=== PATIENT | male | born 1960 | race Caucasian/White ===

== ENCOUNTER 2017-09-08 06:46 | Inpatient (IN) ==
--- NOTE | 2017-09-08 06:59 | Emergency Department Note ---
Disposition Clinical Impression: NSTEMI (non-ST elevation myocardial infarction) Chest pain Qualifiers: Chest pain type: chest pain due to myocardial ischemia Ischemic chest pain type : unspecified angina pectoris type Qualified Code(s): I25.9 - Chronic ischemic heart disease, unspecified Disposition: Admitted As Inpatient Condition: Fair Time of Disposition: 09:10 Chest Pain HPI - General Chief Complaint: ED Chest Pain Stated Complaint: CP, both arms tingly Time Seen by Provider: 09/08/17 06:54 Source: patient, family Mode of arrival: private vehicle Limitations: no limitations Vital Signs Reviewed: Yes Nursing Notes Reviewed: Yes - History of Present Illness HPI Narrative: There is a pleasant 56-year-old male. He presents the emergency room with chest pain starting at 3 am this morning when he woke up for work as well as bilateral arm tingling. Patient states that the pain has been constant since 3 AM he states that it is in his anterior bilateral chest. he denies localization. Initially he was unsure if anything made the pain better or worse however following interview he notes that the pain gets better with palpation and better with deep breathing. He has a positive family history for brother who passed with a heart attack last May at age 55. He also notes that he has hypercholesterolemia hypertension insulin-dependent diabetic type II. He states that he had a recent stress test in September 2016. No other concerns at this time. he does not have any previous cardiac history. He incidentally notes that he fell forward yesterday and landed on his knees. Mechanical fall. He denies hits to the chest or head during this fall. He has regular contact with his primary care physician and was able to text his PCP prior to arrival in the ED today. His PCP recommended evaluation in the ED due to family history and chest pain. Pt complaint: chest pain Onset (ago): hour(s) (3) Duration: constant Onset: other (started just after waking up at 3 am) Pain Location: substernal Quality: tightness Improves with: other (palpation / deep breathing) Associated symptoms: Denies: nausea, vomiting, diaphoresis, dyspnea, sense of impending doom, palpitations, fever, cough, leg swelling Treatments prior to arrival chest pain: aspirin (162 mg chewable) - Related Data On Oral Contraceptives: No Home Medications Medication Instructions Recorded Confirmed Insulin Glargine,Hum.rec.anlog 45 unit SQ QPM 09/08/17 09/08/17 [Basaglar Kwikpen U-100] Losartan/Hydrochlorothiazide 1 tab PO DAILY 09/08/17 09/08/17 [Hyzaar 100-12.5 Tablet] Lovastatin 40 mg PO QPM 09/08/17 09/08/17 Tamsulosin HCl [Flomax] 0.4 mg PO DAILY 09/08/17 09/08/17 glipiZIDE [Glipizide] 10 mg PO BID 09/08/17 09/08/17 Allergies Allergy/AdvReac Type Severity Reaction Status Date / Time No Known Allergies Allergy Verified 09/08/17 06:49 All systems ED: reviewed and negative except as stated. Review of Systems: As Per HPI Physical Exam Pt resting comfortably in the exam bed without diaphoresis or acute distress. Lungs CtA, Cardiac RRR. Exam neg for leg / calf swelling. NO pitting edema. Distal extremities are warm and dry. abdomen soft. no skin findings. - General Limitations: no limitations General appearance: alert, in no apparent distress - Head Head exam: atraumatic, normocephalic, normal inspection - Eye Eye exam: Present: normal appearance, PERRL, EOMI - Expanded Eye Exam Pupils: Left: reactive - ENT ENT exam: normal exam, normal oropharynx, mucous membranes moist - Expanded ENT Exam Mouth exam: Present: normal external inspection Teeth exam: Present: normal inspection Throat exam: Present: normal inspection - Neck Neck exam: Present: normal inspection, full ROM - Chest Chest inspection: Present: normal inspection, symmetric chest wall rise - Respiratory Respiratory exam: Present: normal lung sounds bilaterally - Cardiovascular Cardiovascular exam: Present: regular rate, normal rhythm, normal heart sounds - Abdominal Exam Abdominal exam: Present: soft, Non-Tender. Absent: tenderness, distention, guarding, rebound, rigidity - Extremities Exam Extremities exam: Present: normal inspection, full ROM. Absent: tenderness, pedal edema - Expanded Upper Extremity Exam Shoulder exam: Present: normal inspection Arm exam: Present: normal inspection Elbow exam: Present: normal inspection Forearm/Wrist exam: Present: normal inspection Hand exam: Present: normal inspection Vascular exam: Normal: capillary refill, radial pulse - Expanded Lower Extremity Exam Hip/Pelvis exam: Present: normal inspection Upper leg exam: Present: normal inspection Knee exam: Present: normal inspection Lower leg exam: Present: normal inspection Ankle exam: Present: normal inspection Foot/toe exam: Present: normal inspection Neurovascular/Tendon exam: Absent: motor deficit, sensory deficit, tendon deficit - Back Exam Back exam: Present: normal inspection. Absent: tenderness - Neurological Exam Neurological exam: Present: alert, oriented X3 - Expanded Neurological Exam Patient oriented to: Present: person, place, time Coma Scale Eye Opening: Spontaneous Coma Scale Motor Response: Obeys Commands Coma Scale Verbal Response: Oriented Coma Scale Total: 15 - Psychiatric Psychiatric exam: Present: normal affect, normal mood - Skin Skin exam: Present: warm, dry, intact, normal color Course Course Narrative: 0710 - pt notes slight improvement of symptoms following resting on bed. He states that CP was a 5 or a 6 when he arrived at the ED. He notes that it is currently a 2 or 3 with a positional component. EKG WNL. 0745 - pt notes chest pain is 0. 0840 - seems results of elevated troponin 0.4. Recheck on patient notes that his chest pain returned momentarily after exertion/walking to the bathroom. He currently rates his pain at a 1. Sublingual nitroglycerin was ordered. The patient was given 1 dose of nitroglycerin which resolved his chest pain to 0. Following attending evaluation CTA chest and abdomen were ordered to evaluate for dissection. Heparin drip was started and 180 mg by mouth Brilinta was added to patient's care. Repeat EKG diagnostic w slight elevation and depression. Cardiology consulted. 0858 - 1 dose of SL Nitro took pain to 0. Pt is currently pain free. Cardiology and hopsitalist consulted. Pt will be admitted to medicine w cardiology consult. Pt did well in the ED without any complications. Vital Signs Temperature 97.6 F 09/08/17 06:49 Pulse Rate 78 09/08/17 06:49 Respiratory Rate 18 09/08/17 06:49 Blood Pressure 167/82 09/08/17 06:49 O2 Sat by Pulse Oximetry 99 09/08/17 06:49 Temperature 98.0 F 09/09/17 03:18 Pulse Rate 76 09/09/17 03:18 Respiratory Rate 16 09/09/17 03:18 Blood Pressure 100/62 09/09/17 03:18 O2 Sat by Pulse Oximetry 96 09/09/17 03:18 Oxygen Delivery Oxygen Delivery Room Air Chest Pain - Lab Data Lab results reviewed: Yes I reviewed the patient's lab results. Result diagrams: 09/09/17 05:16 09/09/17 05:16 Lab Results 09/08/17 09/08/17 09/08/17 Range/Units 07:48 07:48 07:48 WBC 7.6 (4.3-11.1) K/mcL RBC 4.45 (4.19-5.50) M/mcL Hgb 13.4 (12.9-16.9) g/dL Hct 39.9 (37.5-50.1) % MCV 89.7 (83.0-100.0) fL MCH 30.1 (28.0-33.3) pg MCHC 33.6 (31.6-35.5) g/dL RDW 12.7 (11.5-14.5) % Plt Count 155 (140-400) K/mcL MPV 9.2 L (9.4-12.4) fL Immature Gran % 0.3 (0-4) % Seg Neutrophils % 74.9 % Lymphocytes % 16.0 % Monocytes % 6.9 % Eosinophils % 1.2 % Basophils % 0.7 % Neutrophils # 5.7 (1.6-8.9) K/mcL Lymphocytes # 1.2 (0.6-4.6) K/mcL Monocytes # 0.5 (0.0-1.3) K/mcL Eosinophils # 0.1 (0.0-0.6) K/mcL Basophils # 0.1 (0.0-0.2) K/mcL PT 11.7 (9.4-12.1) Seconds INR 1.1 APTT 35.1 (26.0-36.0) Seconds Sodium (136-145) mEq/L Potassium (3.5-5.1) mEq/L Chloride (98-107) mEq/L Carbon Dioxide (23-29) mEq/L BUN (6-20) mg/dL Creatinine (0.70-1.30) mg/dL Est GFR ( Amer) (> 60) Est GFR (Non-Af Amer) (> 60) BUN/Creatinine Ratio (6-26) Glucose (70-105) mg/dL Calculated Osmolality (280-300) Calcium (8.6-10.3) mg/dL Total Bilirubin 0.5 (0.3-1.0) mg/dL Direct Bilirubin 0.1 (0.0-0.2) mg/dL Indirect Bilirubin 0.4 (0.0-1.2) mg/dL AST 27 (13-39) Units/L ALT 21 (7-52) Units/L Alkaline Phosphatase 79 (34-104) Units/L Troponin I (< 0.04) ng/mL Serum Total Protein 7.0 (6.4-8.9) g/dL Albumin 4.1 (3.5-5.7) g/dL Globulin 2.9 (2.4-3.5) g/dL Albumin/Globulin Ratio 1.4 (1.1-2.2) Lipase 39 (11-82) Units/L /08/21 Range/Units 07:48 WBC (4.3-11.1) K/mcL RBC (4.19-5.50) M/mcL Hgb (12.9-16.9) g/dL Hct (37.5-50.1) % MCV (83.0-100.0) fL MCH (28.0-33.3) pg MCHC (31.6-35.5) g/dL RDW (11.5-14.5) % Plt Count (140-400) K/mcL MPV (9.4-12.4) fL Immature Gran % (0-4) % Seg Neutrophils % % Lymphocytes % % Monocytes % % Eosinophils % % Basophils % % Neutrophils # (1.6-8.9) K/mcL Lymphocytes # (0.6-4.6) K/mcL Monocytes # (0.0-1.3) K/mcL Eosinophils # (0.0-0.6) K/mcL Basophils # (0.0-0.2) K/mcL PT (9.4-12.1) Seconds INR APTT (26.0-36.0) Seconds Sodium 135 L (136-145) mEq/L Potassium 4.6 (3.5-5.1) mEq/L Chloride 102 (98-107) mEq/L Carbon Dioxide 24 (23-29) mEq/L BUN 24 H (6-20) mg/dL Creatinine 0.87 (0.70-1.30) mg/dL Est GFR ( Amer) > 60 (> 60) Est GFR (Non-Af Amer) > 60 (> 60) BUN/Creatinine Ratio 28 H (6-26) Glucose 172 H (70-105) mg/dL Calculated Osmolality 288 (280-300) Calcium 9.9 (8.6-10.3) mg/dL Total Bilirubin (0.3-1.0) mg/dL Direct Bilirubin (0.0-0.2) mg/dL Indirect Bilirubin (0.0-1.2) mg/dL AST (13-39) Units/L ALT (7-52) Units/L Alkaline Phosphatase (34-104) Units/L Troponin I 0.40 H* (< 0.04) ng/mL Serum Total Protein (6.4-8.9) g/dL Albumin (3.5-5.7) g/dL Globulin (2.4-3.5) g/dL Albumin/Globulin Ratio (1.1-2.2) Lipase (11-82) Units/L - Radiology Data Radiology results reviewed: Yes I reviewed the patient's radiology results. Heart Score - Score Age: 45-65 Risk Factors: 1-2 risk factors (3) Troponin: 1-3x normal limit Critical Care Time Attestation: billed by attending physician Dr. Lorenzo.
[2017-09-08] MEDS ORDERED: Aspirin 81 MG TAB.CHEW PO ONE (07:09)
[2017-09-08] MEDS ORDERED: Ibuprofen 600 MG TABLET PO ONE (07:09)
[2017-09-08 07:58] LABS: Basophils # 0.1 K/mcL (0.0-0.2); Basophils % 0.7 %; Eosinophils # 0.1 K/mcL (0.0-0.6); Eosinophils % 1.2 %; Hematocrit 39.9 % (37.5-50.1); Hemoglobin 13.4 g/dL (12.9-16.9); Immature Granulocytes % 0.3 % (0-4); Lymphocytes # 1.2 K/mcL (0.6-4.6); Mean Corpuscular HGB Conc 33.6 g/dL (31.6-35.5); Mean Corpuscular Hemoglobin 30.1 pg (28.0-33.3); Mean Corpuscular Volume 89.7 fL (83.0-100.0); Mean Platelet Volume 9.2 fL (9.4-12.4); Monocytes # 0.5 K/mcL (0.0-1.3); Monocytes % 6.9 %; Neutrophils # 5.7 K/mcL (1.6-8.9); Platelet Count 155 K/mcL (140-400); Red Blood Count 4.45 M/mcL (4.19-5.50); Red Cell Distribution Width 12.7 % (11.5-14.5); Segmented Neutrophils % 74.9 %
[2017-09-08 08:02] LABS: INR 1.1; Prothrombin Time 11.7 Seconds (9.4-12.1)
[2017-09-08 08:04] LABS: Activated Partial Thrombo Time 35.1 Seconds (26.0-36.0)
[2017-09-08 08:23] LABS: Albumin 4.1 g/dL (3.5-5.7); Albumin/Globulin Ratio 1.4 (1.1-2.2); Bilirubin,Direct 0.1 mg/dL (0.0-0.2); Bilirubin,Indirect 0.4 mg/dL (0.0-1.2); Bilirubin,Total 0.5 mg/dL (0.3-1.0); Globulin 2.9 g/dL (2.4-3.5)
[2017-09-08 08:25] LABS: BUN/Creatinine Ratio 28 (6-26); Blood Urea Nitrogen 24 mg/dL (6-20); Calcium 9.9 mg/dL (8.6-10.3); Carbon Dioxide 24 mEq/L (23-29); Chloride 102 mEq/L (98-107); Glucose 172 mg/dL (70-105); Osmolality,Calculated 288 (280-300); Potassium 4.6 mEq/L (3.5-5.1); Sodium 135 mEq/L (136-145); eGFR For African Americans > 60 (> 60); eGFR For Non-African Americans > 60 (> 60)
[2017-09-08] MEDS ORDERED: Nitroglycerin 0.4 MG TAB.SUBL SL ONE (08:34)
[2017-09-08] MEDS ORDERED: *HR* Heparin 5,000 UNIT/ML VIAL IVP PRN ×2 (08:37)
[2017-09-08] MEDS ORDERED: *HR* Heparin 5,000 UNIT/ML VIAL IVP ONE (08:37)
[2017-09-08] MEDS ORDERED: Isovue-370 500 ML INFUS..BTL IV ONE (08:40)
[2017-09-08] MEDS ORDERED: *HR* Ticagrelor 90 MG TABLET PO ONE (08:43)
[2017-09-08] MEDS ORDERED: Heparin 25,000 UNIT/500 ML D5W 25,000 UNIT/500 ML BAG IVC SCH (08:45)
--- NOTE | 2017-09-08 09:22 | Internal Med History&Physical ---
Date of Encounter: 09/08/17 Time of Encounter: 09:20 Internal Medicine - H&P: HPI Chief complaint: chest pain Admitted From: Emergency Dept Plans for Post Hospital Care: Home History of present illness: Mr. Canas is a 56 year old male Patient with history of diabetes, obesity, hypertension, high cholesterol, family history of CAD in brother had an MD at age of 55 and patient present with chest pain. 3 AM this morning describes as pressure and tightness ongoing for about 3 hours emergency room patient had troponin of 0.4 consistent with non-STEMI patient had been seen by cardiology and plan for cardiac cath and patient is now chest pain-free and stable .Of note patient had a nuclear stress test done September last year EF 73% negative for ischemia. Past Med Surg Social Fam HX - Past Medical History Medical history: diabetes, hyperlipidemia, hypertension Psychiatric history: no psych history - Social History Smoking Status: Never smoker Smokeless Tobacco Status: No Alcohol use: none Drug use: none Internal Medicine - H&P: Meds 3 Allergy/AdvReac Type Severity Reaction Status Date / Time No Known Allergies Allergy Verified 09/08/17 06:49 All Systems PM: A 10-system review of systems was performed and is negative for pertinent findings except as documented above in the HPI. - Constitutional Constitutional: as per HPI - EENT Eyes: no change in vision, no discharge, no pain, no photophobia Ears: no ear discharge, no ear pain, no tinnitus Nose, mouth and throat: no dysphagia, no nasal discharge, no neck pain, no sore throat - Cardiovascular Cardiovascular ROS IM: chest pain, dyspnea on exertion - Respiratory Respiratory: dyspnea - Gastrointestinal Gastrointestinal: no abdominal pain, no diarrhea, no hematemesis, no hematochezia, no melena, no nausea, no vomiting - Musculoskeletal Musculoskeletal ROS IM: no numbness, no tingling - Constitutional Vitals: Temp Pulse Resp BP Pulse Ox 97.6 F 74 18 137/78 99 09/08/17 06:49 09/08/17 08:50 09/08/17 08:50 09/08/17 08:50 09/08/17 08:50 - Head Head exam: Present: atraumatic, normocephalic - Eye Eye exam: Present: PERRL, conjuntiva pink, sclera anicteric Pupils: Present: PERRL - Neck Neck exam general surgery: Present: supple, trachea midline. Absent: lymphadenopathy - Respiratory Respiratory exam: Present: CTAB. Absent: accessory muscle use, rales, rhonchi, wheezes - Cardiovascular Cardiovascular exam: Present: RRR, +S1, +S2. Absent: diastolic murmur, gallop, rubs, systolic murmur - GI/Abdominal GI/Abdominal exam: Present: normal bowel sounds, soft, no peritoneal signs. Absent: distended, tenderness - Extremities Exam Extremities exam: Present: warm, radial pulses palpable and symmetrical. Absent : calf tenderness, cyanotic, pedal edema - Neurological Exam Neurological exam: Present: CN II-XII intact, oriented X3, no focal deficits. Absent: pronater drift, facial droop, speech deficit - Skin Skin exam: Present: dry, intact Internal Med - H&P Results - Labs CBC & Chem 7: 09/08/17 07:48 09/08/17 07:48 Labs: Short CBC 09/08/17 Range/Units 07:48 WBC 7.6 (4.3-11.1) K/mcL Hgb 13.4 (12.9-16.9) g/dL Hct 39.9 (37.5-50.1) % Plt Count 155 (140-400) K/mcL Neutrophils # 5.7 (1.6-8.9) K/mcL BMP 09/08/17 07:48 Sodium 135 L Potassium 4.6 Chloride 102 Carbon Dioxide 24 BUN 24 H Creatinine 0.87 Glucose 172 H Calcium 9.9 Cardiac Enzymes 09/08/17 Range/Units 07:48 Troponin I 0.40 H* (< 0.04) ng/mL Liver Function 09/08/17 Range/Units 07:48 Total Bilirubin 0.5 (0.3-1.0) mg/dL Direct Bilirubin 0.1 (0.0-0.2) mg/dL AST 27 (13-39) Units/L ALT 21 (7-52) Units/L Alkaline Phosphatase 79 (34-104) Units/L Albumin 4.1 (3.5-5.7) g/dL - Impressions ITS Impressions Chest X-Ray 09/08/17 07:09 IMPRESSION: 1. No acute process. 2. Approximately 18 mm nodular density projecting over the right upper lung. While this could represent asymmetric degenerative changes at the costovertebral junction, possibility of pulmonary nodule should be excluded with follow-up chest CT. This can be done nonemergently as an outpatient. D/ / 09/08/2017 07:57:47 Petr Jefferson MD / curtis Interpreting Provider: Petr Jefferson MD - Assessment and plan (1) Diabetes 1.5, managed as type 2 Current Visit: Yes Status: Chronic Assessment and plan: chronic and insulin-dependent we dunia and place on sliding scale (2) HTN (hypertension) Current Visit: Yes Status: Chronic Assessment and plan: Chronic and appears relatively well controlled Qualifiers: Hypertension type: essential hypertension Qualified Code(s): I10 - Essential (primary) hypertension (3) Hyperlipidemia Current Visit: Yes Status: Chronic Assessment and plan: Chronic recheck in a.m. Qualifiers: Hyperlipidemia type: pure hypercholesterolemia Qualified Code(s): E78.00 - Pure hypercholesterolemia, unspecified; E78.0 - Pure hypercholesterolemia (4) Obesity Current Visit: Yes Status: Chronic Qualifiers: Obesity type: due to excess calories Obesity classification: unspecified obesity classification Serious obesity comorbidity presence: unspecified whether serious comorbidity present Qualified Code(s): E66.09 - Other obesity due to excess calories (5) NSTEMI (non-ST elevation myocardial infarction) Current Visit: Yes Status: Acute Assessment and plan: Patient with multiple cardiac risk factor presented with chest pain troponin 0.4 patoemt already seen by cardiology plan for cath this afternoon - Time Spent With Patient Total time spent is greater than 50% in coordination of care (as documented) at patient's floor/unit and/or counseling patient:
[2017-09-08] MEDS ORDERED: Naloxone 0.4 MG/ML INJ IVP PRN (09:27)
[2017-09-08] MEDS ORDERED: traMADol 50 MG TABLET PO PRN (09:27)
[2017-09-08] MEDS ORDERED: Ondansetron 4 MG/2 ML VIAL IVP PRN (09:27)
[2017-09-08] MEDS ORDERED: Acetaminophen 325 MG TABLET PO PRN (09:27)
--- NOTE | 2017-09-08 09:27 | Emergency Department Note ---
Disposition Clinical Impression: NSTEMI (non-ST elevation myocardial infarction), Chest pain Disposition: Admitted As Inpatient Condition: Fair Referrals: Hector Landa DO [Primary Care Provider] - Forms: ED Satisfaction Letter Time of Disposition: 09:27 General Adult HPI - General Chief complaint: ED Chest Pain Stated complaint: CP, both arms tingly Time Seen by Provider: 09/08/17 06:54 Source: patient, family Mode of arrival: private vehicle Limitations: no limitations - History of Present Illness Pain Scale: 0 - Related Data Allergies Allergy/AdvReac Type Severity Reaction Status Date / Time No Known Allergies Allergy Verified 09/08/17 06:49 Past Medical History - Past Medical History Medical history: Reports: dementia, hyperlipidemia, hypertension Psychiatric history: Reports: no psych history - Social History Smoking Status: Never smoker Smokeless Tobacco Status: No Alcohol use: Reports: none Drug use: Reports: none Physical Exam - General Limitations: no limitations General appearance: alert, in no apparent distress Course Vital Signs Temperature 97.6 F 09/08/17 06:49 Pulse Rate 78 09/08/17 06:49 Respiratory Rate 18 09/08/17 06:49 Blood Pressure 167/82 09/08/17 06:49 O2 Sat by Pulse Oximetry 99 09/08/17 06:49 Temperature 97.6 F 09/08/17 06:49 Pulse Rate 74 09/08/17 08:50 Respiratory Rate 18 09/08/17 08:50 Blood Pressure 137/78 09/08/17 08:50 O2 Sat by Pulse Oximetry 99 09/08/17 08:50 Oxygen Delivery Oxygen Delivery Room Air Medical Decision Making - Lab Data Result diagrams: 09/08/17 07:48 09/08/17 07:48 Lab Results 09/08/17 09/08/17 09/08/17 Range/Units 07:48 07:48 07:48 WBC 7.6 (4.3-11.1) K/mcL RBC 4.45 (4.19-5.50) M/mcL Hgb 13.4 (12.9-16.9) g/dL Hct 39.9 (37.5-50.1) % MCV 89.7 (83.0-100.0) fL MCH 30.1 (28.0-33.3) pg MCHC 33.6 (31.6-35.5) g/dL RDW 12.7 (11.5-14.5) % Plt Count 155 (140-400) K/mcL MPV 9.2 L (9.4-12.4) fL Immature Gran % 0.3 (0-4) % Seg Neutrophils % 74.9 % Lymphocytes % 16.0 % Monocytes % 6.9 % Eosinophils % 1.2 % Basophils % 0.7 % Neutrophils # 5.7 (1.6-8.9) K/mcL Lymphocytes # 1.2 (0.6-4.6) K/mcL Monocytes # 0.5 (0.0-1.3) K/mcL Eosinophils # 0.1 (0.0-0.6) K/mcL Basophils # 0.1 (0.0-0.2) K/mcL PT 11.7 (9.4-12.1) Seconds INR 1.1 APTT 35.1 (26.0-36.0) Seconds Sodium (136-145) mEq/L Potassium (3.5-5.1) mEq/L Chloride (98-107) mEq/L Carbon Dioxide (23-29) mEq/L BUN (6-20) mg/dL Creatinine (0.70-1.30) mg/dL Est GFR ( Amer) (> 60) Est GFR (Non-Af Amer) (> 60) BUN/Creatinine Ratio (6-26) Glucose (70-105) mg/dL Calculated Osmolality (280-300) Calcium (8.6-10.3) mg/dL Total Bilirubin 0.5 (0.3-1.0) mg/dL Direct Bilirubin 0.1 (0.0-0.2) mg/dL Indirect Bilirubin 0.4 (0.0-1.2) mg/dL AST 27 (13-39) Units/L ALT 21 (7-52) Units/L Alkaline Phosphatase 79 (34-104) Units/L Troponin I (< 0.04) ng/mL Serum Total Protein 7.0 (6.4-8.9) g/dL Albumin 4.1 (3.5-5.7) g/dL Globulin 2.9 (2.4-3.5) g/dL Albumin/Globulin Ratio 1.4 (1.1-2.2) Lipase 39 (11-82) Units/L 06/05/18 Range/Units 07:48 WBC (4.3-11.1) K/mcL RBC (4.19-5.50) M/mcL Hgb (12.9-16.9) g/dL Hct (37.5-50.1) % MCV (83.0-100.0) fL MCH (28.0-33.3) pg MCHC (31.6-35.5) g/dL RDW (11.5-14.5) % Plt Count (140-400) K/mcL MPV (9.4-12.4) fL Immature Gran % (0-4) % Seg Neutrophils % % Lymphocytes % % Monocytes % % Eosinophils % % Basophils % % Neutrophils # (1.6-8.9) K/mcL Lymphocytes # (0.6-4.6) K/mcL Monocytes # (0.0-1.3) K/mcL Eosinophils # (0.0-0.6) K/mcL Basophils # (0.0-0.2) K/mcL PT (9.4-12.1) Seconds INR APTT (26.0-36.0) Seconds Sodium 135 L (136-145) mEq/L Potassium 4.6 (3.5-5.1) mEq/L Chloride 102 (98-107) mEq/L Carbon Dioxide 24 (23-29) mEq/L BUN 24 H (6-20) mg/dL Creatinine 0.87 (0.70-1.30) mg/dL Est GFR ( Amer) > 60 (> 60) Est GFR (Non-Af Amer) > 60 (> 60) BUN/Creatinine Ratio 28 H (6-26) Glucose 172 H (70-105) mg/dL Calculated Osmolality 288 (280-300) Calcium 9.9 (8.6-10.3) mg/dL Total Bilirubin (0.3-1.0) mg/dL Direct Bilirubin (0.0-0.2) mg/dL Indirect Bilirubin (0.0-1.2) mg/dL AST (13-39) Units/L ALT (7-52) Units/L Alkaline Phosphatase (34-104) Units/L Troponin I 0.40 H* (< 0.04) ng/mL Serum Total Protein (6.4-8.9) g/dL Albumin (3.5-5.7) g/dL Globulin (2.4-3.5) g/dL Albumin/Globulin Ratio (1.1-2.2) Lipase (11-82) Units/L Critical Care Time Critical Care Time: Yes Total Critical Care Time: 35 Attestation: Critical care performed: Time is exclusive of separately billable procedures. Time includes: direct patient care, patient reassessment, coordination of patient care, interpretation of data (laboratory data, radiology data, and respiratory data), review of patient's medical records, medical consultation and documentation of patient care. Procedures included in critical care time: Procedures excluded from critical care time: Attestation Statement - Attestation Attestation: I, Bernardo Lorenzo DO have provided [id number] time during the care of this patient. Detailed review the presentation, symptoms, medical history were discussed and reviewed with the mid-level provider Maryellen Warren PA-C/BRIJESH. Medical intervention labs and imaging studies were reviewed in detail. See full documentation of physical exam and course of care in the mid-level provider's note. I agree with the determined course of care, medical intervention and disposition put forth by the mid-level provider. See below documentation for changes or alterations in documentation. 56-year-old male presents to the emergency room for evaluation of chest pain. Patient woke up this morning and onset of symptoms after waking. Patient's symptoms were persistent at that time. He said come in the emergency room because he has a brother who at a young age from cardiac heart attack. Patient on arrival had approximately 6 out of 10 pain. While resting in the bed the pain spontaneously went away. He denied any symptoms during initial evaluation treatment by the mid-level provider. Cardiac evaluation was being completed. Patient did have a heart score 3 based on initial presentation family history as well as his age. Because of this the patient was provided with aspirin. Patient did not require any immediate intervention that time. Patient got up to go to the bathroom and had some discomfort substernally while he was walking. At that time a lab was called back in the patient's troponin was 0.4. Initial EKG was reviewed by myself and did not show any acute findings at that time. Approximately an hour and 30 minutes after the patient arrived here to the emergency room I had evaluated the patient secondary to the abnormal lab. Patient had no pain throughout the treatment course until he walked to the bathroom. Repeat EKG was collected and the did have some slight depression leads 1 and aVL along with a 0.5 mm elevation in lead 3 nondiagnostic EKG initially. This was reviewed with the [employer] Dr. teresa jean. I reviewed the EKGs in sequence along with the previous with him and he agreed is not diagnostic this time. Single dose of nitroglycerin was given the patient's symptoms are 100% gone at this point. Aspirin and nitroglycerin and and Brilinta. Patient does not require any immediate intervention at this time. Cardiology as well as the hospitalist about been done in the emergency room to evaluate the patient the bedside. All agree with the projected course of care. Patient is otherwise currently stable. He will be set up for catheterization in the hospital stay this time. Otherwise patient is in no distress. Denies any melena, hematochezia, history of GI bleed. 35 minutes critical care provider the patient's treatment course at this time. Admission process will be completed
[2017-09-08] MEDS ORDERED: D5% in Water 1,000 ML IVC PRN (09:31)
[2017-09-08] MEDS ORDERED: *HR* Dextrose 50 % in Water (Syg) 50 ML SYRINGE IVP PRN (09:31)
[2017-09-08] MEDS ORDERED: Dextrose Gel 15 GM/37.5 ML TUBE PO PRN ×2 (09:31)
--- NOTE | 2017-09-08 09:53 | Cardiology Consult Note ---
Date of Encounter: 09/08/17 Time of Encounter: 09:51 Assessment and Plan (1) NSTEMI (non-ST elevation myocardial infarction) Current Visit: Yes Status: Acute 56-year-old male with multiple risk factors for CAD presents with chest discomfort. Mild troponin elevation consistent with a NSTEMI. Patient reports his symptoms have resolved with ACS therapy. Risk factor modification emphasized. Risks, benefits, and alternatives to cardiac catheterization discussed. Patient and are agreeable and wish to proceed. Check TTE. Discussion w patient/family: The assessment and plan as outlined above was discussed with the patient and/or family members who expressed understanding and agreement. All questions were answered. Thank you for involving us in the care of your patient. Please call with any questions. History of Present Illness Consult date: 09/08/17 Requesting physician: Bernardo Lorenzo Consult reason: CP, NSTEMI Chief complaint: CP History of present illness: Mr. Canas is a 56 year old male with a personal history of essential HTN, HLP , and diabetes. Also reports a strong family history of heart disease, brother last year at age 54 from an [place]. Presents after several hours of a chest discomfort, which started this morning. Symptoms did not worsen, but persisted after going to work. Ultimately, he contacted his who brought him to the emergency room. Describes a general discomfort across his chest. Describes pain in both arms. Underwent a stress test last year, which was negative for ischemia. Reports general fatigue with activity over the last few weeks. Past Med Surg Social Fam HX - Past Medical History Medical history: dementia, hyperlipidemia, hypertension Psychiatric history: no psych history - Social History Smoking Status: Never smoker Smokeless Tobacco Status: No Alcohol use: none Drug use: none Medications and Allergies 3 Allergy/AdvReac Type Severity Reaction Status Date / Time No Known Allergies Allergy Verified 09/08/17 06:49 All Systems Review: The remainder of the systems were reviewed and are negative - Cardiovascular Cardiovascular: as per HPI Physical Examination General: Conversant, No Apparent Distress HEENT: Atraumatic, Normocephaly, Mucus Membranes Moist Neck: No JVD, Normal carotid pulses Cardiac: Reg Rate and Rhythm, Normal S1 and S2, No Murmur Lungs: Normal Breath Sounds, No Wheeze, Rales, Rhonchi Neuro: Alert and responsive, No focal deficits noted Abdomen: Soft, Non-Tender Skin: No rashes noted on visualized skin Musculoskeletal: No Chest Wall Tenderness Extremities: No Clubbing, No Cyanosis, No Edema Results 09/08/17 07:48 09/08/17 07:48 - Imaging and Cardiology Stress Test: report reviewed - EKG Interpretation EKG results cardiology: personally reviewed Consult Discharge Plan - Plan Referrals: Hector Landa DO [Primary Care Provider] -
[2017-09-08] MEDS: 0.9 % Sodium Chloride 1,000 ML IVC SCH ×2 (12:33→23:13)
[2017-09-08] MEDS: Metoprolol XL (24 HR) Succ 25 MG TAB.ER.24H PO SCH (12:33)
[2017-09-08] MEDS: Insulin LISPRO 300 UNITS/3 ML VIAL SQ SCH ×2 (12:45→18:06)
--- NOTE | 2017-09-08 13:38 | Pre-Sedation Evaluation ---
Pre-sedation evaluation - Pre-sedation checklist Date of procedure: 09/08/17 Procedure: [facility] Recent Vitals: Last Vital Signs Temp 98.0 F 09/08/17 10:01 Pulse 76 09/08/17 10:01 Resp 15 09/08/17 10:01 BP 149/84 09/08/17 10:01 Pulse Ox 100 09/08/17 10:01 H&P (including ROS) documented in medical record: Yes Previous reaction to sedatives/anesthetics: No Dietary Status: NPO 6 hours prior to procedure Dentition: No loose teeth or bridges ASA Classification *see protocol: CLASS II-Mild systemic disease Plan of Care: Pt appropriate candidate for procedure/moderate/conscious sedation , Risks/benefits of procedure/sedation discussed w/ patient/family
[2017-09-08] MEDS ORDERED: Heparin 1,000 UNITS/500 mL 500 ML ONE (13:47)
[2017-09-08] MEDS ORDERED: *HR* Heparin 10,000 UNIT/10 ML VIAL ONE (13:47)
[2017-09-08] MEDS ORDERED: 0.9 % Sodium Chloride 1,000 ML ONE (13:47)
[2017-09-08] MEDS ORDERED: ISOVUE-370 200 ML INFUS..BTL IV ONE (13:48)
[2017-09-08] MEDS ORDERED: *HR* FentaNYL (PF) 100 MCG/2 ML VIAL ONE (14:37)
[2017-09-08] MEDS ORDERED: *HR* Midazolam HCl 2 MG/2 ML VIAL ONE ×2 (14:37→14:52)
[2017-09-08] MEDS ORDERED: Verapamil 5 MG/2 ML VIAL ONE (14:41)
[2017-09-08] MEDS ORDERED: Nitroglycerin 1,000 MCG/10 ML VIAL IV ONE (14:41)
[2017-09-08] MEDS ORDERED: Nitroglycerin Spray 4.9 GM BOTTLE ONE (14:56)
--- NOTE | 2017-09-08 16:28 | Electrocardiograph Report ---
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
--- NOTE | 2017-09-08 16:28 | Electrocardiograph Report ---
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
--- NOTE | 2017-09-08 16:42 | Electrocardiograph Report ---
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
--- NOTE | 2017-09-08 16:52 | Cardiothoracic Consult Note ---
Date of Encounter: 09/08/17 Time of Encounter: 16:48 Assessment and Plan (1) NSTEMI (non-ST elevation myocardial infarction) Current Visit: Yes Status: Acute The assessment and plan as outlined above was discussed with the patient and/or family members who expressed understanding and agreement. All questions were answered. The patient has triple-vessel disease with preserved ventricular function and is a candidate for coronary artery bypass grafting. The right coronary artery is small and may not be graftable, but he could receive several grafts on the left side. He did receive Brilinta this morning and will need to be off this for 5 days prior to surgery. He can be maintained on a heparin drip until that time. Surgery to be scheduled for Thursday or Thursday of next week. The procedure, its risks, benefits and alternatives were explained to the patient and his family and they will consider. All questions were answered. They did discuss possible transfer to [place]. - History of Present Illness History of present illness: Mr. Canas is a 56 year old male The patient is a 56-year-old gentleman who presented with chest pain and a positive troponin to 2.38. He did receive Brilinta this morning. No previous history of myocardial infarction. A recent echocardiogram revealed normal left ventricular function with mild to moderate mitral regurgitation. Cardiac catheterization revealed severe triple vessel disease and he was referred for surgery. Past medical history is notable for diabetes on insulin and pills. He also has hypertension and hypercholesterolemia. Family history is strongly positive for coronary artery disease including a brother who at age 55 of a myocardial infarction. Social history. He lives with his and son in [place]. 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 Does not smoke. Rarely drinks alcohol. Review of systems is notable for no history of stroke or TIA. No history of saphenous vein varicosities or strippings. Past Med Surg Social Fam HX - Past Medical History Medical history: diabetes, hyperlipidemia, hypertension Psychiatric history: no psych history - Past Surgical History Surgical History: no surgical history - Social History Smoking Status: Never smoker Smokeless Tobacco Status: No Alcohol use: none Drug use: none - Family History Father Living Status: Age at : 50 Cause of : [place] Hx Family Cardiac Disorders: Yes Medications and Allergies Insulin Glargine,Hum.rec.anlog [Ken Hudson U-100] 45 unit SQ QPM 09/08/17 [History] Losartan/Hydrochlorothiazide [Hyzaar 100-12.5 Tablet] 1 tab PO DAILY 09/08/17 [ History] Lovastatin 40 mg PO QPM 09/08/17 [History] Tamsulosin HCl [Flomax] 0.4 mg PO DAILY 09/08/17 [History] glipiZIDE [Glipizide] 10 mg PO BID 09/08/17 [History] 3 Allergy/AdvReac Type Severity Reaction Status Date / Time No Known Allergies Allergy Verified 09/08/17 06:49 All Systems Review: The remainder of the systems were reviewed and are negative Physical Examination He has an early cataract in one eye. No oral lesions. Neck is supple. Trachea in the midline. No thyromegaly or carotid bruits. Lungs are clear to percussion and auscultation. Heart is in a regular rate and rhythm. No murmurs , gallops or rubs. Abdomen is benign. No tenderness, rebound or guarding. Extremities without edema. No saphenous vein varicosities or strippings. Cranial nerves, motor and sensory intact. Results 09/08/17 07:48 09/08/17 07:48 Lab Results, Last 24 hours 09/08/17 13:11 Troponin I 2.38 H* Consult Discharge Plan - Plan Referrals: Hector Landa DO [Primary Care Provider] -
--- NOTE | 2017-09-08 18:33 | Invasive Diagnostic Lab Proc ---
Name: Kaden Canas Date of Study: 09/08/2017 Date: 1960 Ht: 70.9in Medical Record#: [id number] Age: 56 Wt: 249.12lb Gender: Male BSA: 2.31 Order #: [id number] BMI: 34.88 Physicians Procedure Physician: Terell Villagomez MD, [facility] Referring MD: Referring MD: Staff Name Position [facility] Shira RN Scrub 02:37 PM Yuki Garcia RT (R) Monitor 02:38 PM Leland Hopkins RN Solderer Assembler 02:38 PM Indications Indication Non-Stemi Procedures Performed Procedure L HRT ARTERY/VENTRICLE ANGIO Pre-Procedure Checklist Informed consent is complete signed and on chart. H&P is on chart. ID band is on and ID verified with patient. Patient NPO for procedure The procedure was described for the patient and questions were answered. Blood Pressure: 137/78 ECG is on chart. Plan of Care Patient will tolerate the procedure without complications. Adequate level of comfort will be maintained. Hemodynamics will remain stable Patient will recover from procedure without complications. Respiratory function will be maintained. Cardiac rhythm will remain stable. Patient temperature will be maintained. Patient and/or family have verbalized understanding of the procedure. Patient Education Chief Complaint/Reason for Test: Cardiac Cath Developmental Category: Adult (18-64 years) Developmentally Appropriate for Age: Yes Learning Barriers: None Education Needs: Procedure Education Method: Verbal Information Taught: Cardiac Cath Educational Evaluation: Able to repeat information Intravenous Access Time IV Size Location DC'd Fluid/Drip Rate Units RN 20g 1 /" Patent On Arrival Lt Hand 0.9NaCl 25 ml/hr Allergies No Known Allergies Vital Signs Time BP (mmHg) HR (bpm) O2 Sat. RR (bpm) LOC 02:39 PM / % 5 = Fully awake and oriented or at pre-proc level 02:39 PM / % 4 = Oriented but drowsy 02:54 PM / % 4 = Oriented but drowsy 03:10 PM / % 4 = Oriented but drowsy 02:56 PM 110 / 64 79 96 % 03:01 PM 100 / 56 81 95 % 03:06 PM 114 / 85 84 94 % 03:11 PM 129 / 77 83 99 % 03:16 PM 110 / 68 83 97 % 03:21 PM 123 / 66 84 98 % 03:26 PM 103 / 84 98 % 03:31 PM 109 / 62 81 98 % 03:25 PM / % 5 = Fully awake and oriented or at pre-proc level 03:46 PM 104 / 81 93 % 16 5 = Fully awake and oriented or at pre-proc level 04:03 PM 123 / 77 100 % 16 5 = Fully awake and oriented or at pre-proc level 04:15 PM / 75 100 % 18 5 = Fully awake and oriented or at pre-proc level 04:32 PM / 74 100 % 18 5 = Fully awake and oriented or at pre-proc level 04:48 PM / 60 79 100 % 17 5 = Fully awake and oriented or at pre-proc level 05:01 PM 82 100 % 20 5 = Fully awake and oriented or at pre-proc level 05:18 PM 77 100 % 20 5 = Fully awake and oriented or at pre-proc level 05:38 PM 114 / 79 100 % 21 5 = Fully awake and oriented or at pre-proc level 05:52 PM 114 / 77 100 % 19 5 = Fully awake and oriented or at pre-proc level 06:04 PM 116 / 78 100 % 17 5 = Fully awake and oriented or at pre-proc level 06:16 PM 116 / 62 78 100 % 18 5 = Fully awake and oriented or at pre-proc level 06:23 PM 1121 / 72 100 % 17 5 = Fully awake and oriented or at pre-proc level Procedural Medications Time Medication Dose Units Method Given By 02:39 PM Versed 2 mg Intravenous Leland Hopkins RN 02:40 PM Fentanyl 50 mcg Intravenous Leland Hopkins RN 02:40 PM Oxygen 2 L/min nasal cannula Leland Hopkins RN 02:52 PM Lidocaine 2% 0.5 ml Subcutaneous Terell Villagomez MD, FACC 02:52 PM Versed 1 mg Intravenous Leland Hopkins RN 02:53 PM Fentanyl 25 mcg Intravenous Leland Hopkins RN 03:04 PM Lidocaine 2% 19 ml Subcutaneous Terell Villagomez MD, FACC 03:11 PM Lidocaine 2% 10 ml Subcutaneous Terell Villagomez MD, FAC ASA Classification: CLASS II- Mild systemic disease (i.e. well-controlled diabetes, hypertension, asthma, cigarette smoking) Nereida Score Preprocedure Postprocedure Activity 2- Moves 4 extremities sustained head lift Activity 2- Moves 4 extremities sustained head lift Circulation 2- SBP +/= 20 points of pre-anesthetic level Circulation 2- SBP +/= 20 points of pre-anesthetic level Consciousness 2- Awake and alert oriented x 3 Consciousness 2- Awake and alert oriented x 3 O2 Saturation 2- Able to maintain O2 satruation of 92% on room air O2 Saturation 2- Able to maintain O2 satruation of 92% on room air Respiratory 2- Able to deep breathe and cough well Respiratory 2- Able to deep breathe and cough well Total Score 10 Total Score 10 Contrast Agent: Isovue Diagnostic Contrast: 58 ml Total Contrast: 58 ml Fluoro Dose: 431 mGy Activated Clotting Time Time Seconds to Clot 03:27 PM 228 04:47 PM 184 05:45 PM 156 Procedure Log Time Note Enter By 02:37 PM Pt [facility] pathology laboratory director [facility] PM Shira Lezama RN Position: Scrub Time [facility]: 14:37 [facility] 02:38 PM Yuki Garcia RT (R) Position: Monitor Time in: :38 [facility] 02:38 PM Leland Hopkins RN Position: Solderer Assembler Time [facility]: 14:38 [facility] 02[facility] PM Patient charges- Angio tray pack, Navilyst 3mm J, Pulse Oximetry and ACIST tubing and transducer jc 02:38 PM IV Supplies used: J [facility] 02[facility]39 PM CathStat 02:39 PM Case Delayed No dspell 02:39 PM Hair removed from procedure site in procedure lab using clippers. Right wrist, right groin prepped with Chloraprep by Ani Hitchcock RT (R), then patient was draped. Skin intact. dspell:39 PM Physician arrived 14:39 dspell 02:39 PM An completed dspell:39 PM Sign in performed according to hospital policy. ell:39 PM Procedure start 14:39 dspell:39 PM Time: 14:39 Patient comfortable and pain free: Yes dspell:39 PM Time: 14:39LOC: 5 = Fully awake and oriented or at pre-proc level dspell 02:40 PM Time: 14:39 Versed 2 mg Intravenous Given by Leland Hopkins RN 02:40 PM Time: 14:40 Fentanyl 50 mcg Intravenous Given by Leland Hopkins RN 02:40 PM Time: 14:40 Oxygen on at 2 L/min per nasal cannula by Leland Hopkins RN 02:40 PM Clinical Presentation: Non-STEMI 02:44 PM ASA Class CLASS II- Mild systemic disease (i.e. well-controlled diabetes, hypertension, asthma, cigarette smoking) 02:51 PM Time out performed according to hospital policy 02:52 PM Time: 14:52 0.5 ml Lidocaine 2% to right radial Subcutaneous Given by Terell Villagomez MD, [facility] 02:53 PM Time: 14:52 Versed 1 mg Intravenous Given by Leland Hopkins RN eva 02:53 PM Time: 14:53 Fentanyl 25 mcg Intravenous Given by Leland Hopkins RN 02:54 PM Time: 14:39LOC: 4 = Oriented but drowsy [facility] 02:54 PM Time: 14:39 Patient comfortable and pain free: Yes 02:55 PM Vitals capture started with the following parameters, Patient=Adult, Interval=5 min, Initial Aspiddqy=902 mmHg, Deflation Rate=5 mmHg, Cuff placed on Right Arm 02:56 PM HR=79 bpm, NBGM=274/64 mmhg, SpO2=96.0 %, Comment=NSR 02:56 PM Pressure channel 1 zeroed. 02:58 PM Access obtained by percutaneous puncture. 6Fr 10cm Terumo Glidesheath sheath placed in right Radial artery. [id number] ell 02:59 PM 5Fr TIG catheter inserted over the wire [facility] :59 PM 0.035 260cm Navilyst 3mmJ wire [id number] dsp 02:59 PM Wire removed dsp 02:59 PM 0.035 145cm VSI Sy-Torque wire [id number] dspell 03:01 PM HR=81 bpm, VPTV=589/56 mmhg, SpO2=95.0 %, Comment=NSR 03:03 PM unable to advance wire. Setting up for groin access. 03:05 PM Time: 15:04 19 ml Lidocaine 2% to right groin Subcutaneous Given by Terell Villagomez MD, FACC dspellman 03:06 PM HR=84 bpm, OIIY=884/85 mmhg, SpO2=94.0 %, Comment=NSR 03:10 PM Time: 14:54 Patient comfortable and pain free: Yes [email or web address] 03:10 PM Time: 14:54LOC: 4 = Oriented but drowsy dspellman 03:10 PM Unsuccessful access attempt # 1 into the right Femoral artery. Manual pressure applied to achieve hemostasis.. dspellman 03:11 PM HR=83 bpm, LPTP=304/77 mmhg, SpO2=99.0 %, Comment=NSR 03:11 PM Time: 15:11 10 ml Lidocaine 2% to right groin Subcutaneous Given by Terell Villagomez MD, [facility] dspellman 03:13 PM Access obtained by percutaneous puncture. 6Fr 23cm [facility] Milad Ultimum sheath placed in right Femoral artery. [id number] dspellman 03:14 PM 5Fr FL 4 catheter inserted over the wire DN dspellman 03:15 PM 0.035 145cm Navilyst 3mmJ wire [id number] dspellman 03:15 PM LCA angiography performed in multiple views. dspellman 03:15 PM Recorded Pressure: Ao, HR=78, Condition=Condition 1 (Aorta) Ao 77/62/69 03:16 PM HR=83 bpm, IGQG=356/68 mmhg, SpO2=97.0 %, Comment=NSR 03:17 PM Lesion found in Proximal LAD. Pre Stenosis: 80 Pre VANESA Flow: dspellman 03:17 PM Lesion found in Proximal Circumflex. Pre Stenosis: 99 Pre VANESA Flow: 2: Partial Flow/Perfusion (> 1 but < 3) dspellman 03:17 PM Lesion found in Ramus. Pre Stenosis: 99 Pre VANESA Flow: 2: Partial Flow/Perfusion (> 1 but < 3) dspellman 03:[address] Scooby Ann and responded dspellman 03:19 PM Lesion found in Proximal RCA. Pre Stenosis: 90 Pre VANESA Flow: 3: Complete and Brisk Flow/Perfusion dspellman 03:19 PM Catheter removed dspellman 03:20 PM 5Fr FR 4 catheter inserted over the wire DN dspellman 03:20 PM RCA angiography performed in multiple views. dspellman 03:20 PM Catheter removed dspellman 03:20 PM 5Fr Pigtail catheter inserted over the wire DN dspellman 03:20 PM Catheter selectively placed in left ventricle dspellman 03:20 PM Bolus angiogram of left Ventricle complete: 12 ml/sec for a total of 30 mls dspellman 03:20 PM Recorded Pressure: LV, HR=86, Condition=Condition 1 (Left Ventricle) LV 109/-4/11 03:21 PM Recorded Pressure: LV, Ao, HR=86, Condition=Condition 1 (Left Ventricle) LV 107/1/5, (Aorta) Ao 98/63/77 03:21 PM HR=84 bpm, AHML=823/66 mmhg, SpO2=98 % 03:21 PM Catheter removed dspell 03:21 PM Bolus angiogram of right Femoral complete: 4 ml/sec for a total of 7 mls dspellman 03:22 PM ACT drawn dspell 03:23 PM Procedure completed at 15:23 dspellman 03:23 PM Did you address VANESA flow and Dominance? Yes dspell 03:24 PM Site status Hematoma - Rt Groin as reported by Shira Lezama RN at 15:24 3-5 cm dspell 03:25 PM Time: 15:10LOC: 4 = Oriented but drowsy dspell 03:25 PM Sign out completed: Radiation Dose 430.86 mGy Fluoro Time: 3.0 Isovue 370 - 200ml contrast 58 ml given by Terell Villagomez MD, [facility]. Complications: NoneCardiac Rehab Consult needed: YesConfirmed administered medications: Yes dspell 03:25 PM Isovue 370 - 200ml,1 Bottle(s) used. dspell 03:26 PM Arterial sheath right radial pulled, Vasc Band closure device used and was Successful S/N. dspell 03:26 PM HR=84 bpm, SWPI=336/68 mmhg, SpO2=98.0 %, Comment=NSR 03:26 PM 10 ml air in Vasc Band. dspellman 03:27 PM Estimated Blood Loss: minimal dspellman 03:27 PM Post ECG NSR dspellman 03:27 PM Post Blood Pressure 103/68 dspellman 03:27 PM Holding pressure to the right groin, sheath in place 10 minutes dspell 03:27 PM At 15:27 the ACT was 228 seconds. dspell 03:30 PM Report given to Jeferson RIOS(R) Pt taken to Holding room Room #4. 15:30 dspell 03:31 PM HR=81 bpm, DVPO=492/62 mmhg, SpO2=98 % 03:32 PM Family placed in No family available. ell 03:32 PM Information taught Cardiac Cath dspell 03:32 PM Education needs Procedure, Plan of Care, and Responsibilities of Patient in Care dspell 03:32 PM Learning barriers :None dspell 03:32 PM Education Methods Verbal dspell 03:32 PM Education evaluation Able to repeat information dspell 03:32 PM Complications: None dsp 03:32 PM Fluoro Time: 3 03:33 PM Isovue 370 - 200ml contrast 58 ml given by . 03:33 PM Radiation Dose 430.86 mGy dspell 03:36 PM Site status No bleeding/hematoma - Rt Groin as reported by Shira Lezama RN at 15:36 [email or web address] 03:37 PM Site status No bleeding/hematoma - Rt Wrist as reported by Shira Lezama RN at 15:37 [facility] 03:40 PM Time: 15:25LOC: 5 = Fully awake and oriented or at pre-proc level dspell 03:56 PM called update to SOO King on 3B [email or web address] 04:[address] Almodovar at bedside [email or web address] 04:20 PM lab at bedside [email or web address] 04:32 PM drawing ACT [email or web address] 04:48 PM ACT 184 [email or web address] 05:03 PM Update called to [email or web address] 05:38 PM Vasc band removed and dressing applied to Rt wrist. [email or web address] 05:47 PM Arterial sheath pulled using manual compression and V+ Pad for 25 minutes by Leland Hopkins RN [email or web address] 06:17 PM Site status No bleeding/hematoma - Rt Groin as reported by Leland Hopkins RN at 18:17 [email or web address] 06:17 PM Opsite applied [email or web address] 06:18 PM Report given to Andie VANN Pt taken to Room #44. 18:17 [email or web address] 06:24 PM Patient out of room: 18:24 [email or web address] Complications Complication None None Hemodynamics Pressures Site Systolic/A Wave Diastolic/V Wave Mean AO 77 62 69 LV 109 -4 11 LV 107 1 5 AO 98 63 77 Post Procedure Information Blood Pressure: 103/68 mmHg Rhythm: NSR Post procedural instructions were given Surgery consult for CABG Closure Device Time Device Success/Fail 09/08/2017 3:37:00 PM Mechanical Compression Successful Site Checks Time Location Status Staff Sheath In? Note 03:34 PM Rt Groin Hematoma Shira Lezama RN 3-5 cm 03:36 PM Rt Groin No bleeding/hematoma Shira Lezama RN 03:37 PM Rt Wrist No bleeding/hematoma Shira Lezama RN 03:46 PM Rt Wrist No bleeding/ No Hematoma Jeferson Anton RT (R) VB in PLace 03:46 PM Rt Groin No bleeding/ No Hematoma Jeferson Anton RT (R) 04:03 PM Rt Wrist No bleeding/ No Hematoma Jeferson Anton RT (R) VB in place 04:03 PM Rt Groin No bleeding/ No Hematoma Jeferson Anton RT (R) 04:15 PM Rt Groin No bleeding/ No Hematoma Nasrin Bucio RN 04:15 PM Rt Wrist No bleeding/ No Hematoma Nasrin Bucio RN 04:31 PM Rt Wrist No bleeding/ No Hematoma Jeferson Anton RT (R) 2cc air removed 04:32 PM Rt Groin No bleeding/ No Hematoma Jeferson Anton RT (R) 04:48 PM Rt Groin No bleeding/ No Hematoma Jeferson Anton RT (R) 04:48 PM Rt Wrist No bleeding/ No Hematoma Jeferson Anton RT (R) 2cc air removed 05:00 PM Rt Wrist No bleeding/ No Hematoma Jeferson Anton RT (R) 2cc air removed 05:00 PM Rt Groin No bleeding/ No Hematoma Jeferson Anton RT (R) 05:18 PM Rt Wrist No bleeding/ No Hematoma Ani Hitchcock RT (R) 2 cc air removed 05:18 PM Rt Groin No bleeding/ No Hematoma Ani Hitchcock RT (R) 05:33 PM Rt Groin No bleeding/ No Hematoma Ani Hitchcock RT (R) 05:33 PM Rt Wrist No bleeding/ No Hematoma Ani Hitchcock RT (R) 06:16 PM Rt Groin No bleeding/ No Hematoma Leland Hopkins RN 06:16 PM Rt Groin No bleeding/ No Hematoma Ani Hitchcock RT (R) 06:17 PM Rt Groin No bleeding/hematoma Sandeep, Leland RN Pulses Time Site Pre-Procedure Post-Procedure Note 09/08/2017 3:48:00 PM Rt Radial 1+ 09/08/2017 3:48:00 PM Bilateral DP & PT 1+ 09/08/2017 4:49:00 PM Rt Radial 1+ 09/08/2017 4:49:00 PM Bilateral DP & PT 1+ 09/08/2017 5:18:00 PM Bilateral DP & PT 1+ 09/08/2017 5:18:00 PM Rt Radial 1+ 09/08/2017 5:37:00 PM Rt Radial 1+ 09/08/2017 5:37:00 PM Bilateral DP & PT 1+ 09/08/2017 6:16:00 PM Bilateral DP & PT 1+ 09/08/2017 6:16:00 PM Rt Radial 1+ Updated by Ani Hitchcock RT(R) on 09/08/2017 6:25:28 PM electronically signed on 09/08/2017 6:26:02 PM with status of Final
[2017-09-08] MEDS ORDERED: Insulin LISPRO 300 UNITS/3 ML VIAL SQ SCH (21:00)
[2017-09-08] MEDS ORDERED: *HR* Ticagrelor 90 MG TABLET PO SCH (21:00)
[2017-09-09 05:38] LABS: Hematocrit 36.4 % (37.5-50.1); Hemoglobin 11.9 g/dL (12.9-16.9); Mean Corpuscular HGB Conc 32.7 g/dL (31.6-35.5); Mean Corpuscular Hemoglobin 30.2 pg (28.0-33.3); Mean Corpuscular Volume 92.4 fL (83.0-100.0); Mean Platelet Volume 9.3 fL (9.4-12.4); Platelet Count 153 K/mcL (140-400); Red Blood Count 3.94 M/mcL (4.19-5.50); Red Cell Distribution Width 12.8 % (11.5-14.5)
[2017-09-09 05:44] LABS: Heparin anti-factor XA UFH 0.27 IU/mL (0.30-0.70)
[2017-09-09 05:59] LABS: BUN/Creatinine Ratio 21 (6-26); Blood Urea Nitrogen 17 mg/dL (6-20); Carbon Dioxide 25 mEq/L (23-29); Chloride 106 mEq/L (98-107); Sodium 137 mEq/L (136-145); eGFR For African Americans > 60 (> 60); eGFR For Non-African Americans > 60 (> 60)
[2017-09-09 06:00] LABS: Alanine Aminotransferase 21 Units/L (7-52); Albumin 3.4 g/dL (3.5-5.7); Albumin/Globulin Ratio 1.4 (1.1-2.2); Alkaline Phosphatase 70 Units/L (34-104); Aspartate Amino Transferase 51 Units/L (13-39); Bilirubin,Total 0.5 mg/dL (0.3-1.0); Calcium 8.6 mg/dL (8.6-10.3); Chol/HDL Ratio 3.3 (0-4.9); Cholesterol 129 mg/dL (< 200); Globulin 2.5 g/dL (2.4-3.5); Glucose 102 mg/dL (70-105); HDL Cholesterol 39 mg/dL (40-59); LDL Cholesterol,Calculated 76 mg/dL (0-99); Magnesium 1.8 mg/dL (1.6-2.6); Osmolality,Calculated 286 (280-300); Total Protein 5.9 g/dL (6.4-8.9); Triglycerides 69 mg/dL (< 150)
[2017-09-09 06:25] LABS: Activated Partial Thrombo Time 66.9 Seconds (26.0-36.0)
--- NOTE | 2017-09-09 08:31 | Cardiothoracic Progress Note ---
Date of Encounter: 09/09/17 Time of Encounter: 08:29 - Assessment and plan (1) NSTEMI (non-ST elevation myocardial infarction) Current Visit: Yes Status: Acute The patient has no questions concerning possible open heart surgery. He needs to be off Brilinta for 5 days prior to the OR. He and his are considering possible transfer. - Subjective Interval history: The patient has had no chest pain and no angina. Vital Signs, Last 4 Hours Temp Pulse Resp BP Pulse Ox 09/09/17 07:08 98.2 F 85 14 99/65 97 Weight 09/07/17 09/08/17 09/09/17 23:59 23:59 23:59 Weight 115.8 kg 117 kg Lungs are clear to percussion and auscultation. Heart is in a regular rate and rhythm. - Labs 09/09/17 05:16 09/09/17 05:16 Lab Results, Last 24 hours 09/08/17 09/08/17 09/09/17 13:11 16:22 05:16 WBC 8.9 Hgb 11.9 L D Hct 36.4 L Plt Count 153 APTT 107.8 H D Sodium Potassium Chloride Carbon Dioxide BUN Creatinine Glucose Calcium Magnesium Total Bilirubin AST ALT Alkaline Phosphatase Troponin I 2.38 H* B-Natriuretic Peptide 09/09/17 09/09/17 09/09/17 05:16 05:16 05:16 WBC Hgb Hct Plt Count APTT 66.9 H Sodium 137 Potassium 4.0 Chloride 106 Carbon Dioxide 25 BUN 17 Creatinine 0.82 Glucose 102 Calcium 8.6 Magnesium 1.8 Total Bilirubin 0.5 AST 51 H ALT 21 Alkaline Phosphatase 70 Troponin I B-Natriuretic Peptide 73 Consult Discharge Plan - Plan Referrals: Hector Landa DO [Primary Care Provider] -
[2017-09-09] MEDS ORDERED: Aspirin 81 MG TAB.CHEW PO SCH (09:00)
[2017-09-09] MEDS: Metoprolol XL (24 HR) Succ 25 MG TAB.ER.24H PO SCH (10:41)
[2017-09-09] MEDS: Insulin LISPRO 300 UNITS/3 ML VIAL SQ SCH ×2 (10:42→12:32)
[2017-09-09 12:11] VITALS: BP 115/76
--- NOTE | 2017-09-09 12:34 | Cardiology Progress Note ---
Date of Encounter: 09/09/17 Time of Encounter: 12:31 Assessment and Plan (1) NSTEMI (non-ST elevation myocardial infarction) Current Visit: Yes Status: Acute NSTEMI. 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 Overall, patient reports he is feeling well. Recommend continue ACS therapy. Surgery has been recommended. Brilinta wash out - plan for early next week. Patient considering transfer. Discussion w patient/family: The assessment and plan as outlined above was discussed with the patient and/or family members who expressed understanding and agreement. All questions were answered. Thank you for involving us in the care of your patient. Please call with any questions. Subjective Principal diagnosis: CAD Interval history: Overall, patient reports he is feeling better. No chest pain reported. LHC reviewed, findings demonstrate multivessel CAD. CABG recommended. CT surgery has evaluated the patient. Surgery planned for early next week, allowing Brilinta washout. Objective Vital Signs, Last 4 Hours Temp Pulse Resp BP Pulse Ox 09/09/17 12:09 98.1 F 85 14 115/76 97 General: Conversant, No Apparent Distress HEENT: Atraumatic, Normocephaly, Mucus Membranes Moist Neck: No JVD, Normal carotid pulses Cardiac: Reg Rate and Rhythm, Normal S1 and S2, No Murmur Lungs: Normal Breath Sounds Neuro: Alert and responsive, No focal deficits noted Abdomen: Soft, Non-Tender Skin: No rashes noted on visualized skin Musculoskeletal: No Chest Wall Tenderness Extremities: No Clubbing, No Cyanosis, No Edema Results 09/09/17 05:16 09/09/17 05:16 Lab Results 09/08/17 09/08/17 09/09/17 13:11 16:22 05:16 WBC 8.9 Hgb 11.9 L D Hct 36.4 L Plt Count 153 APTT 107.8 H D Sodium Potassium Chloride Carbon Dioxide BUN Creatinine Glucose Calcium Magnesium Total Bilirubin AST ALT Alkaline Phosphatase Troponin I 2.38 H* B-Natriuretic Peptide 09/09/17 09/09/17 09/09/17 05:16 05:16 05:16 WBC Hgb Hct Plt Count APTT 66.9 H Sodium 137 Potassium 4.0 Chloride 106 Carbon Dioxide 25 BUN 17 Creatinine 0.82 Glucose 102 Calcium 8.6 Magnesium 1.8 Total Bilirubin 0.5 AST 51 H ALT 21 Alkaline Phosphatase 70 Troponin I B-Natriuretic Peptide 73 - Imaging and Cardiology Echo: report reviewed Cardiac cath: report reviewed Consult Discharge Plan - Plan Referrals: Hector Landa DO [Primary Care Provider] -
--- NOTE | 2017-09-09 13:09 | Event Note ---
Date of Encounter: 09/09/17 Time of Encounter: 13:07 Patient has decided he would like to be transferred to [place] for surgery. Transfer center contacted. Spoke with CT surgery CHAIR INSPECTOR, Qian. Transfer has been accepted. Please continue heparin drip. Continue aspirin, statin, and beta kalyan therapy. Patient aware of risks of transfer. All questions have been answered.
--- NOTE | 2017-09-09 14:35 | Discharge Summary ---
Date of Encounter: 09/09/17 Time of Encounter: 14:29 Hospital course: Mr. Canas is a 56 year old male past history of diabetes hyperlipidemia hypertension patient originally presented with chest pain and positive troponin 2.38 no previous history of OH. Recent echocardiogram revealed normal left ventricular function with mild to moderate mitral regurgitation. Cardiac catheterization did reveal a severe triple-vessel disease with preserved ventricular function he has a candidate for coronary artery bypass grafting and he was referred to cardiothoracic surgery. Originally surgery was scheduled for Thursday or Thursday of next week however patient and his have expressed possible transfer to [place] for surgery. Dr. Mario was notified he has arranged transfer to [place]. Recommends continuation of aspirin and statin beta kalyan therapy. Presently on heparin drip. Patient is aware of risk of transfer . He is hemodynamically stable at this time, and is ready for transfer to [place] [facility] Discharge discussed with: patient - Time Spent with Patient Total time spent providing and/or coordinating discharge services: - Discharge Medications Home Medications: Insulin Glargine,Hum.rec.anlog [Basaglnishant Kwcitlalipen U-100] 45 unit SQ QPM 09/08/17 [History] Losartan/Hydrochlorothiazide [Hyzaar 100-12.5 Tablet] 1 tab PO DAILY 09/08/17 [ History] Lovastatin 40 mg PO QPM 09/08/17 [History] Tamsulosin HCl [Flomax] 0.4 mg PO DAILY 09/08/17 [History] glipiZIDE [Glipizide] 10 mg PO BID 09/08/17 [History] Allergies/Adverse Reactions: 3 Allergy/AdvReac Type Severity Reaction Status Date / Time No Known Allergies Allergy Verified 09/08/17 06:49 Date of admission: 09/08/17 09:27 Primary care physician: Hector Landa DO Consults: 09/08/17 15:45 Consult to Cardiothoracic Surgery [CONS] Routine Consulting Provider: [facility]oracic Surgery [place] Reason for Consult: open heart Call Completed: Yes - Constitutional Vitals: Temp Pulse Resp BP Pulse Ox 98.1 F 85 14 115/76 97 09/09/17 12:09 09/09/17 12:09 09/09/17 12:09 09/09/17 12:09/09/17 12:09 General appearance: Present: A&O X 0 - Head Head exam: Present: atraumatic, normocephalic - Eye Eye exam: Present: PERRL, conjuntiva pink, sclera anicteric Pupils: Present: PERRL - Neck Neck exam general surgery: Present: supple, trachea midline. Absent: lymphadenopathy - Respiratory Respiratory exam: Present: CTAB. Absent: accessory muscle use, rales, rhonchi, wheezes - Cardiovascular Cardiovascular exam: Present: RRR, +S1, +S2. Absent: diastolic murmur, gallop, rubs, systolic murmur - GI/Abdominal GI/Abdominal exam: Present: normal bowel sounds, soft, no peritoneal signs. Absent: distended, tenderness - Extremities Exam Extremities exam: Present: warm, radial pulses palpable and symmetrical. Absent : calf tenderness, cyanotic, pedal edema - Neurological Exam Neurological exam: Present: CN II-XII intact, oriented X3, no focal deficits. Absent: pronater drift, facial droop, speech deficit - Skin Skin exam: Present: dry, intact - Patient Status Disposition: Transfer Other Condition: Fair Functional capacity at discharge: bed bound Overall status at discharge: patient is not back to baseline - Discharge Instructions Instructions: Myocardial Infarction (DC), Diabetes Mellitus Type 2 in Adults ( DC), Chronic Hypertension (DC) Follow Up With: Hector Landa DO [Primary Care Provider] - Forms: ED Satisfaction Letter
== END 2017-09-09 16:08 | disposition short-term general hospital (02) | DRG 282 ==
LOC: 3BNU 06:46 → EMEROO 06:46 → 3BNU 09:50
PROVIDERS: ADMIT Internal Medicine Cardiovascular Disease; ATTEND Internal Medicine Cardiovascular Disease